=== PATIENT | female | born 1975 | race Caucasian/White ===

== ENCOUNTER 2016-08-25 09:27 | Emergency (ER) | payer OTHER ==
[~2016-08-25] VITALS: Ht 157.5 cm; Wt 54.4 kg
[~2016-08-25 09:27] MED LIST: AMOXIL500 MG PO; BACTRIM DS 8001 TAB PO; BEYAZ PO; DEXTROAMP-AMPHE30 MG PO; VICODIN5-300 PO
--- NOTE | 2016-08-25 09:41 | ED GENERAL ADULT ---
History of Present Illness General Chief Complaint: Trunk Injury Stated Complaint: BIBA RIB PAIN S/P STARTING THE WEIGHT SHIFTER YESTERDA Source: patient, family Exam Limitations: no limitations Vital Signs & Intake/Output Vital Signs & Intake/Output Vital Signs Date Time Temp Pulse Resp B/P B/P Pulse O2 O2 Flow FiO2 Mean Ox Delivery Rate 08/25 1750 98.2 80 16 104/56 98 Room Air Room Air 08/25 1554 97.5 81 14 114/63 99 Room Air 08/25 1308 97.5 98 18 111/69 98 Room Air 08/25 1112 98.2 102 18 110/59 97 Room Air 08/25 0935 98.4 111 18 92/63 96 Room Air Allergies Coded Allergies: NO KNOWN ALLERGIES (08/19/14) Reconcile Medications Dextroamphetamine/Amphetamine (Dextroamp-Amphetamin 30 MG Tab) 30 MG TABLET 1 TAB PO BID ADHD (Reported) Escitalopram Oxalate 10 MG TABLET 1 TAB PO DAILY ANXIETY (Reported) Ibuprofen 600 MG TABLET 1 TAB PO TID PRN PAIN with food Moxifloxacin HCl (Avelox) 400 MG TABLET 1 TAB PO DAILY PNEUMONIA Triage Note: 41 Y/O FEMALE BIBA (TO TRIAGE) C/O R SIDED BREAST PAIN; ALSO C/O R FOOT PAIN, NECK PAIN AND BACK PAIN FOR A FEW DAYS. STATES SHE TRIED TO MOW THE LAWN YESTERDAY AND "I MUST HAVE PULLED SOMETHING". STATES WHEN SHE PRESSES ON CHEST/BREAST PAIN, IT IMPROVES. USING BIOFREEZE AND ICE WITH SOME RELIEF. Triage Nurses Notes Reviewed? yes Onset: Abrupt Duration: hour(s): Timing: recent history : No Patient currently breastfeeds: No HPI: 08/25/16 10:47 AM This is a 41-year-old female presents to the emergency department complaining of substernal chest pain. The patient states that she was in her usual state of health until this morning when she developed retrosternal chest pain. She also has right sided neck pain. No shortness of breath no fever, no abdominal pain. She says she is under a lot of stress. According to her father she has a lot going and yesterday was mowing the lawn and used a pull mower and he thinks this may have contributed to her chest pain. The onset of the symptoms were abrupt, the duration was just today, the severity is significant; as her symptoms required to come to the emergency department for care. She does admit to a cough Past History Travel History Traveled to [place] past 21 day No Medical History Any Pertinent Medical History? 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 No Review of Systems Review of Systems Constitutional: Denies: fever. EENTM: Reports: no symptoms. Respiratory: Reports: cough. Denies: short of breath. Cardiovascular: Reports: chest pain. GI: Denies: abdominal pain. Genitourinary: Reports: no symptoms. Musculoskeletal: Reports: neck pain. Skin: Denies: rash. Neurological/Psychological: Denies: headache. Hematologic/Endocrine: Reports: no symptoms. Immunologic/Allergic: Reports: no symptoms. Physical Exam Physical Exam General Appearance: alert, awake, anxious, moderate distress Head: atraumatic, normal appearance Eyes: Bilateral: normal appearance, PERRL, EOMI. Ears, Nose, Throat: normal pharynx, normal ENT inspection Neck: supple, tender lateral Respiratory: normal breath sounds, no respiratory distress, chest wall tenderness Cardiovascular: regular rate/rhythm Peripheral Pulses: 4+ radial (R), 4+ radial (L) Gastrointestinal: soft, non-tender Back: normal range of motion Extremities: normal inspection, normal range of motion Neurologic/Psych: no motor/sensory deficits, awake, alert, oriented x 3 Skin: intact, normal color, warm/dry Core Measures ACS in differential dx? No CVA/TIA Diagnosis: No Severe Sepsis Present: No Septic Shock Present: No Progress Differential Diagnoses I considered the following diagnoses in my evaluation of the patient: [Acute coronary syndrome, myocarditis, Lyme disease, pneumothorax, pulmonary embolism, pneumonia] Plan of Care: Orders Procedure Date/time Status TROPONIN LEVEL 08/25 105 Complete LYME TITRE 08/25 105 Active HUMAN BETA HCG SCREEN 08/25 105 Complete D-DIMER 08/25 105 Complete COMPREHENSIVE METABOLIC PANEL 08/25 1054 Complete CBC WITHOUT DIFFERENTIAL 08/25 1054 Complete Laboratory Tests 08/25/16 1103: Anion Gap 10, Estimated GFR > 60, BUN/Creatinine Ratio 21.3, Glucose 93, Calcium 8.9, Total Bilirubin 0.5, AST 17, ALT 27, Alkaline Phosphatase 38, Troponin I < 0.01, Total Protein 6.4, Albumin 3.8, Globulin 2.6, Albumin/Globulin Ratio 1.5, Total Beta HCG NEGATIVE, D-Dimer 245 H, CBC w Diff MAN DIFF ORDERED, RBC 4.27, MCV 83.7, MCH 28.6, RDW 13.4, MPV 8.1, Gran % 90.1 H, Lymphocytes % 5.3 L, Monocytes % 4.6, Eosinophils % 0, Basophils % 0 L, Absolute Granulocytes 11.8 H, Segmented Neutrophils 74, Band Neutrophils 12 H, Absolute Lymphocytes 0.7 L , Lymphocytes 9 L, Monocytes 5, Absolute Monocytes 0.6, Absolute Eosinophils 0, Absolute Basophils 0, Platelet Estimate ADEQUATE, Normocytic RBCs VERIFIED, Normochromic RBCs VERIFIED, PUBS MCHC 34.2, Lyme Disease Antibody Pending Initial ED EKG: none Departure Departure Disposition: STILL A PATIENT Condition: Stable Clinical Impression Primary Impression: Chest wall pain Referrals: MARTÍNEZ OLMEDO MD (PCP/Family) Departure Forms: Customer Survey General Discharge Information Prescriptions: Current Visit Scripts Moxifloxacin HCl (Avelox) 1 TAB PO DAILY #7 TAB Ibuprofen 1 TAB PO TID PRN PAIN #10 TAB with food Comments CTA NO HYPOXIA, NON TOXIC CT + RIGHT SIDED CONSOLIDATIONS Patient looks well. Ambulating without difficulty. Pulse ox 97% on room air. I spoke with Dr. Anguiano, he will see the patient in follow-up. She was put on Avelox 400 mg daily for 7 daysPATIENT: KATLYNKAELYN PRESENT AGE: 41 PATIENT ACCOUNT NO: [id number] : 77 LOCATION: [facility] ORDERING PHYSICIAN: MYRNA TIM DO SERVICE DATE: 08/25/16 EXAM TYPE: CAT - CTA CHEST-PULMONARY EMBOLISM EXAMINATION: CT ANGIOGRAM CHEST WITH AND WITHOUT CONTRAST (CT PULMONARY ANGIOGRAM FOR PE) CLINICAL INFORMATION: Chest pain. Shortness of breath. Right hilar mass. COMPARISON: Plain chest radiograph same date. TECHNIQUE: Prior to contrast administration, noncontrast localization images were obtained. Subsequently, multidetector volumetric imaging was performed from the thoracic inlet to below the diaphragms following the administration of 125 mL Optiray 350 intravenous contrast. No contrast reaction reported. Sagittal, coronal, and MIP oblique sagittal reformatted images were obtained on the CT workstation, uploaded to PACS, and reviewed. DLP: 238.28 mGy-cm FINDINGS: QUALITY OF STUDY/CONTRAST BOLUS: Satisfactory PULMONARY ARTERIES: No central or segmental pulmonary emboli. THORACIC AORTA: No aneurysm or dissection. LUNG: There is dense consolidation in the anterior right upper lobe (series 3, images 20-30/57). This area of consolidation demonstrates air bronchograms and CT angiogram sign arguing against infarct. Some preserved lung is noted within secondary pulmonary lobules. Acute consolidation may represent pneumonia or hemorrhage among other considerations. Patchy consolidation and ill-defined, likely alveolar, nodules are noted in the superior segment of the right lower lobe. This is consistent with a multifocal consolidation. Similar differential considerations apply including pneumonia, hemorrhage or aspiration. The central airways are patent. No underlying diffuse lung disease is seen. Minor dependent atelectasis in the lower zones. PLEURA: No pleural effusion or pneumothorax. MEDIASTINUM: The heart and great vessels are normal in appearance on nongated exam. No evidence of increased right heart pressures. There is residual thymic tissue. No adenopathy or mass. Normal thyroid. The esophagus is grossly normal in appearance. CHEST WALL/AXILLAE: No axillary or internal mammary lymphadenopathy. OSSEOUS STRUCTURES: No rib fracture or acute chest wall process. UPPER ABDOMEN: Unremarkable. No reflux of contrast into the hepatic veins to suggest elevated right heart pressures. IMPRESSION: 1. No pulmonary embolism. 2. Dense right upper lobe consolidation. 3. Patchy and nodular right lower lobe consolidation. 4. Differential considerations include pneumonia, hemorrhage or aspiration. Clinical correlation is required. 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 <Electronically signed in Other Vendor System> SIGNED BY: KELI TAYLOR MD 08/25/16 1527 08/27/16 10 am Spoke to patient she is feeling better and has returned to work. 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 Critical Care Note Critical Care Note Critical Care Time: non-applicable
[2016-08-25] MEDS ORDERED: ESCITALOPRAM OX10 MG PO (10:25)
[2016-08-25 11:18] LABS: ABSOLUTE BASOPHIL COUNT 0 /CUMM (0.0-0.2); ABSOLUTE EOSINOPHIL COUNT 0 /CUMM (0.0-0.7); ABSOLUTE GRANULOCYTE CT 11.8 /CUMM (1.4-6.5); ABSOLUTE LYMPH COUNT 0.7 /CUMM (1.2-3.4); ABSOLUTE MONOCYTE COUNT 0.6 /CUMM (0.10-0.60); BASOPHIL % 0 % (0.0-2.0); EOSINOPHIL % 0 % (0-5); GRANULOCYTE % 90.1 % (42.2-75.2); HEMATOCRIT 35.8 % (37-47); MEAN CORPUSCULAR HGB 28.6 PG (27.0-31.0); MEAN CORPUSCULAR HGB CONC 34.2 G/DL (33.0-37.0); MEAN CORPUSCULAR VOLUME 83.7 FL (81.0-99.0); MEAN PLATELET VOLUME 8.1 FL (7.4-10.4); PLATELET COUNT 216 /CUMM (130-400); RBC DISTRIBUTION WIDTH 13.4 % (11.5-14.5); RED BLOOD CELL CT 4.27 /CUMM (4.20-5.40); WHITE BLOOD CELL COUNT 13.1 /CUMM (4.8-10.8)
--- NOTE | 2016-08-25 12:33 | RADIOLOGY REPORT ---
EXAMINATION: XR PORTABLE CHEST CLINICAL INFORMATION: Chest pain COMPARISON: None TECHNIQUE: Portable frontal view of the chest was obtained. FINDINGS: Right hilar masslike opacity may represent lymphadenopathy. Further assessment with CT chest recommended. More subtle rounded opacities noted in the right perihilar region. Cardiac silhouette is within normal limits. Bony thorax is intact. IMPRESSION: Right hilar masslike opacity suspicious of lymphadenopathy. Adjacent rounded more subtle opacities in the perihilar region. Further assessment with CT chest recommended.
--- NOTE | 2016-08-25 15:27 | CT SCAN REPORT ---
EXAMINATION: CT ANGIOGRAM CHEST WITH AND WITHOUT CONTRAST (CT PULMONARY ANGIOGRAM FOR PE) CLINICAL INFORMATION: Chest pain. Shortness of breath. Right hilar mass. COMPARISON: Plain chest radiograph same date. TECHNIQUE: Prior to contrast administration, noncontrast localization images were obtained. Subsequently, multidetector volumetric imaging was performed from the thoracic inlet to below the diaphragms following the administration of 125 mL Optiray 350 intravenous contrast. No contrast reaction reported. Sagittal, coronal, and MIP oblique sagittal reformatted images were obtained on the CT workstation, uploaded to PACS, and reviewed. DLP: 238.28 mGy-cm FINDINGS: QUALITY OF STUDY/CONTRAST BOLUS: Satisfactory PULMONARY ARTERIES: No central or segmental pulmonary emboli. THORACIC AORTA: No aneurysm or dissection. LUNG: There is dense consolidation in the anterior right upper lobe (series 3, images 20-30/57). This area of consolidation demonstrates air bronchograms and CT angiogram sign arguing against infarct. Some preserved lung is noted within secondary pulmonary lobules. Acute consolidation may represent pneumonia or hemorrhage among other considerations. Patchy consolidation and ill-defined, likely alveolar, nodules are noted in the superior segment of the right lower lobe. This is consistent with a multifocal consolidation. Similar differential considerations apply including pneumonia, hemorrhage or aspiration. The central airways are patent. No underlying diffuse lung disease is seen. Minor dependent atelectasis in the lower zones. PLEURA: No pleural effusion or pneumothorax. MEDIASTINUM: The heart and great vessels are normal in appearance on nongated exam. No evidence of increased right heart pressures. There is residual thymic tissue. No adenopathy or mass. Normal thyroid. The esophagus is grossly normal in appearance. CHEST WALL/AXILLAE: No axillary or internal mammary lymphadenopathy. OSSEOUS STRUCTURES: No rib fracture or acute chest wall process. UPPER ABDOMEN: Unremarkable. No reflux of contrast into the hepatic veins to suggest elevated right heart pressures. IMPRESSION: 1. No pulmonary embolism. 2. Dense right upper lobe consolidation. 3. Patchy and nodular right lower lobe consolidation. 4. Differential considerations include pneumonia, hemorrhage or aspiration. Clinical correlation is required. VTE: Negative
[2016-08-25] MEDS ORDERED: IBUPROFEN600 M1 PO (16:46)
[2016-08-25] MEDS ORDERED: AVELOX400 M1 PO (16:46)
[2016-08-25 17:50] VITALS: BP 104/56
== END 2016-08-25 17:51 ==
LOC: ERH 09:27
PROVIDERS: Emergency Medicine
DX: R07.89 Other chest pain (principal); M54.2 Cervicalgia
CPT/HCPCS: 86618; 96372; 96374; J0696; J1885